=== PATIENT | male | born 2005 | race African-American/Black ===

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

== ENCOUNTER 2025-04-30 09:17 | Emergency (ER) | payer OTHER ==
[2025-04-30] MEDS ORDERED: Fluorescein Opthalmic Strip ONE (09:32)
[2025-04-30] MEDS ORDERED: Tetracaine 0.5% PF 4 ML BOT ONE (09:32)
== END 2025-04-30 09:53 | disposition home or self-care (01) ==
LOC: MADERS 09:17
DX: T65.891A Toxic effect of other specified substances, accidental (unintentional), initial encounter (principal); H10.212 Acute toxic conjunctivitis, left eye